=== PATIENT | female | born 1990 | race Caucasian/White ===

== ENCOUNTER 2017-09-12 18:03 | Inpatient (IN) | payer OTHER ==
[~2017-09-12] VITALS: Ht 170.2 cm; Wt 69.0 kg
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
--- NOTE | ~2017-09-12 | HC ---
[facility] [place] [address] CONSULTATION Name: MAGGY KERN Room #: 422-P [facility] IN M.R.#: [id number] Admission: 09/12/17 Attend Phys: Jimbo Ford MD Discharge: 09/16/17 Date of : 88 Report #: [id number] THIS REPORT FOR: //name// CC: [facility] physician/PCP Juna David Shelby SUBJECTIVE: The patient is a 27-year-old female who I have been asked to see for further evaluation of epigastric and right upper quadrant abdominal pain as well as significantly elevated liver tests. Her medical history is complicated by prior IV drug use and high risk sexual exposure in the past. She presented yesterday with increasing abdominal pain, nausea and vomiting. She felt fine before then. Her medical history is otherwise as documented in the chart. She denies any significant alcohol use. She does use marijuana. SOCIAL HISTORY: Otherwise notable for smoking marijuana and cigarettes and no IV drug use for 3 years, although before then frequently. No other medical history. FAMILY HISTORY: Noncontributory. REVIEW OF SYSTEMS: Negative for weight loss, weakness or fatigue. She denies head, eyes, ears, nose or throat complaints. She denies chest pain, chest palpitation, chest pressure, cough, shortness of breath, wheezing, genitourinary, musculoskeletal or neuropsychiatric complaints. PHYSICAL EXAMINATION: VITAL SIGNS: Afebrile, vital signs are stable. HEENT: Nonicteric. NECK: No JVD, thyromegaly or bruits. CARDIOVASCULAR: Regular. LUNGS: Clear. ABDOMEN: Soft, but tender in the right upper quadrant and epigastric region. No rebound or guarding. EXTREMITIES: No clubbing, cyanosis or edema. NEUROLOGIC: Grossly intact. There is no stigmata of chronic liver disease. LABORATORY DATA: Include hemoglobin 9.8, white count 3.3, MCV 73.3, platelet count 181. Chemistry notable for percent saturation of 4, bilirubin 4.1, AST 1480, ALT 1476, alkaline phosphatase 202, albumin 3.0. No lipase was performed. Toxicology notable for Tylenol less than 2, positive amphetamine, positive marijuana. IMAGING: X-ray studies reveal abdominal ultrasound. No biliary ductal dilatation, a collapsed contracted gallbladder, and evidence of edema in the liver. CT abdomen with hepatosplenomegaly. Right upper quadrant inflammatory process with perihepatic and pericholecystic fluid. There is linear branching and periportal low density seen throughout the liver, which can be seen in [address] [address] CONSULTATION Name: MAGGY KERN Room #: 422-P [facility].#: [id number] Admission: 09/12/17 Attend Phys: Jimbo Ford MD Discharge: 09/16/17 Date of : 88 Report #: [id number] hepatic inflammation. In summary, the patient has acute hepatitis. The differential includes infectious, autoimmune, or toxic ingestion. Acute infectious markers are pending, hepatitis A, B and C. She has risk factors for hepatitis B and C. This could be hepatitis A as well. Also, an antinuclear antibody has been ordered as well as a full liver panel. Of course, other etiologies for chronic liver disease and acute exacerbation are possible. She also has significant microcytic anemia and documented iron deficiency. This may be nutritional. There has been no record of significant bleeding. Monitoring for her hepatitis and excluding and treating etiologies as they become apparent through her serology will be necessary. Her epigastric and right upper quadrant pain are most assuredly secondary to acute hepatitis and hepatic inflammation. Of course, careful attention should be followed for impending hepatic failure. At this point, her mental status is appropriate, and there is no evidence of hepatic encephalopathy. If indeed her NILESH comes back positive, empiric treatment with corticosteroids should ensue. We will watch her closely with serial exam and hepatic assessment. Thanks for allowing us to participate in the care of this nice woman. <ELECTRONICALLY SIGNED> By: Bertin Huizar MD 09/18/17 0901 [id number] Sergio Smith MD /nt
[2017-09-12 18:11] VITALS: BP 130/82
[2017-09-12 18:32] LABS: URINE BILIRUBIN 3+ (Negative); URINE BLOOD NEGATIVE (Negative); URINE CLARITY CLOUDY; URINE COLOR AMBER; URINE GLUCOSE-RANDOM* NEGATIVE (Negative); URINE KETONES TRACE (Negative); URINE LEUKOCYTES TRACE (Negative); URINE NITRITE POSITIVE (Negative); URINE PROTEIN (DIPSTICK) 1+ (Negative); URINE SPECIFIC GRAVITY >= 1.030 (1.005-1.035)
[2017-09-12 18:35] LABS: ICTOTEST (BILI CONFIRMATORY) Positive (Negative)
[2017-09-12 19:03] LABS: MUCUS >6 Heavy strn/LPF (None Seen); SQUAMOUS >10 Many /LPF (0-3)
[2017-09-12 19:04] LABS: BACTERIA 1-9 Few /HPF (None Seen); CASTS None Seen /LPF (None Seen); CRYSTALS None Seen /LPF (None Seen); RENAL EPITHELIAL CELLS 0-3 Few /LPF (None Seen); TRANSITIONAL EPITHEL CELL 0-3 Few /LPF (None Seen); URINE RBC 0-2 Rare /HPF (0-2); URINE WBC 0-5 Rare /HPF (0-5)
[2017-09-12 19:14] LABS: ABSOLUTE NEUTROPHILS 1.9 thou/uL (1.4-8.2); BASOPHILS 0.5 % (0.0-2.0); HEMATOCRIT 30.4 % (37.0-47.0); HEMOGLOBIN 9.8 gm/dL (12.0-15.0); LYMPHOCYTES 31.1 % (24.0-44.0); MCH 23.6 pg (26.0-34.0); MCHC 32.1 g/dL (28.0-37.0); MCV 73.3 fL (80.0-100.0); MONOCYTES 8.7 % (1.0-8.0); PLATELET COUNT 181 thou/uL (150-400); POLYS 58.7 % (36.0-66.0); RBC 4.14 mil/uL (4.20-5.00); RDW 19.7 % (10.5-14.5); WBC 3.3 thou/uL (4.0-11.0)
[2017-09-12 19:18] LABS: CALCIUM 8.9 mg/dL (8.5-10.1); CREATININE 0.9 mg/dL (0.6-1.0); POTASSIUM 3.4 mmol/L (3.5-5.1)
[2017-09-12 19:35] LABS: ALBUMIN 3.2 g/dL (3.4-5.0); DIRECT BILIRUBIN 3.5 mg/dL (<0.1-0.3); TOTAL BILIRUBIN 4.1 mg/dL (<0.1-1.0)
[2017-09-12 19:36] LABS: TOTAL PROTEIN 6.7 g/dL (6.4-8.2)
[2017-09-12 21:02] LABS: AMP/METHAMP POSITIVE (Negative); BARBITURATES Negative (Negative); BENZODIAZEPINES Negative (Negative); COCAINE Negative (Negative); METHADONE Negative (Negative); OPIATES POSITIVE (Negative); PCP Negative (Negative)
[2017-09-12 21:25] VITALS: BP 98/66
[2017-09-12 21:44] VITALS: BP 116/75
[2017-09-13 04:12] VITALS: BP 117/74
[2017-09-13 04:45] LABS: % SATURATION 4 % (20-39); IRON 17 ug/dL (50-170); TIBC 448 ug/dL (250-450)
[2017-09-13 04:51] LABS: CALCIUM 8.4 mg/dL (8.5-10.1); CREATININE 0.7 mg/dL (0.6-1.0); POTASSIUM 4.3 mmol/L (3.5-5.1); TOTAL BILIRUBIN 4.1 mg/dL (<0.1-1.0); TOTAL PROTEIN 6.9 g/dL (6.4-8.2)
[2017-09-13 07:40] VITALS: BP 115/74
[2017-09-13 14:07] LABS: GLYCOHEMOGLOBIN (HGB A1C) 5.3 % (4.8-5.6)
[2017-09-13 16:10] LABS: HAV IgM AB (ANTI-HAV IgM) Indeterminate (Negative); HEPATITIS B SURFACE AG Negative (Negative); HEPATITIS C VIRUS AB >11.0 (0.0-0.9)
[2017-09-13 16:55] VITALS: BP 114/62
[2017-09-13 19:22] VITALS: BP 108/70
[2017-09-14 04:08] VITALS: BP 105/63
[2017-09-14 05:11] LABS: ABSOLUTE NEUTROPHILS 2.2 thou/uL (1.4-8.2); BASOPHILS 0.5 % (0.0-2.0); EOSINOPHILS 0.9 % (0.0-3.0); HEMATOCRIT 28.2 % (37.0-47.0); HEMOGLOBIN 9.2 gm/dL (12.0-15.0); LYMPHOCYTES 59.4 % (24.0-44.0); MCH 23.7 pg (26.0-34.0); MCHC 32.7 g/dL (28.0-37.0); MCV 72.5 fL (80.0-100.0); MONOCYTES 6.5 % (1.0-8.0); PLATELET COUNT 185 thou/uL (150-400); POLYS 32.7 % (36.0-66.0); RBC 3.88 mil/uL (4.20-5.00); RDW 20.2 % (10.5-14.5); WBC 6.8 thou/uL (4.0-11.0)
[2017-09-14 05:42] LABS: ALBUMIN 2.7 g/dL (3.4-5.0); CALCIUM 8.1 mg/dL (8.5-10.1); CREATININE 0.7 mg/dL (0.6-1.0); POTASSIUM 3.7 mmol/L (3.5-5.1); TOTAL BILIRUBIN 4.4 mg/dL (<0.1-1.0); TOTAL PROTEIN 6.1 g/dL (6.4-8.2)
[2017-09-14 07:40] VITALS: BP 110/62
[2017-09-14 15:35] VITALS: BP 102/64
[2017-09-14 19:49] VITALS: BP 100/65
[2017-09-15 04:19] VITALS: BP 108/69
[2017-09-15 06:07] LABS: HIV ANTIBODY Non Reactive (Non Reactive)
[2017-09-15 06:10] LABS: HEMATOCRIT 28.5 % (37.0-47.0); HEMOGLOBIN 9.2 gm/dL (12.0-15.0); MCH 23.6 pg (26.0-34.0); MCHC 32.4 g/dL (28.0-37.0); MCV 72.7 fL (80.0-100.0); PLATELET COUNT 178 thou/uL (150-400); RBC 3.92 mil/uL (4.20-5.00); RDW 20.4 % (10.5-14.5); WBC 6.2 thou/uL (4.0-11.0)
[2017-09-15 06:25] LABS: ALBUMIN 2.9 g/dL (3.4-5.0); CALCIUM 8.6 mg/dL (8.5-10.1); CREATININE 0.7 mg/dL (0.6-1.0); POTASSIUM 4.1 mmol/L (3.5-5.1); TOTAL BILIRUBIN 3.7 mg/dL (<0.1-1.0)
[2017-09-15 06:49] LABS: TOTAL PROTEIN 6.6 g/dL (6.4-8.2)
[2017-09-15 07:23] LABS: PLATELET ESTIMATE NORMAL
[2017-09-15 07:24] VITALS: BP 112/78
[2017-09-15 15:07] LABS: CERULOPLASMIN 34.7 mg/dL (19.0-39.0)
[2017-09-15 20:00] VITALS: BP 113/64
[2017-09-16 17:11] LABS: MITOCHONDRIAL ANTIBODY 15.4 Units (0.0-20.0)
== END 2017-09-16 01:04 | disposition left against medical advice (07) | DRG 442 ==
LOC: ER 18:03 → EROBS 20:51 → 4E 20:51
PROVIDERS: Emergency Medicine; Hospitalist; Nurse Practitioner; Nurse Practitioner Acute Care
DX: B17.10 Acute hepatitis C without hepatic coma (principal); N39.0 Urinary tract infection, site not specified; E46 Unspecified protein-calorie malnutrition; F17.210 Nicotine dependence, cigarettes, uncomplicated; D50.9 Iron deficiency anemia, unspecified; F12.10 Cannabis abuse, uncomplicated; F15.10 Other stimulant abuse, uncomplicated; E87.6 Hypokalemia; F11.10 Opioid abuse, uncomplicated; Z68.23 Body mass index [BMI] 23.0-23.9, adult; Z98.891 History of uterine scar from previous surgery; Z88.0 Allergy status to penicillin
CPT/HCPCS: 10084